=== PATIENT | male | born 1995 | race African-American/Black ===

== ENCOUNTER 2020-08-25 11:19 | Emergency (ER) | payer SELFPAY ==
[~2020-08-25] VITALS: Ht 177.8 cm; Wt 81.0 kg
[2020-08-25 12:11] LABS: BASOPHILS % 0.6 % (0.0-2.0); HEMOGLOBIN. 15.9 g/dL (14.0-18.0); LYMPHOCYTES % 37.2 % (20.0-50.0); MEAN CORPUSCULAR HEMOGLOBIN 29.2 pg (28.0-32.0); MEAN CORPUSCULAR VOLUME 88.1 fL (80.0-94.0); MEAN PLATELET VOLUME 9.1 fl (7.4-10.4); MONOCYTES % 7.1 % (2.0-8.0); NEUTROPHILS % 54.1 % (40.0-76.0); PLATELET 218 x1000/uL (130-400); RED BLOOD CELL COUNT 5.45 mill/uL (4.7-6.1); RED CELL DISTRIBUTION WIDTH 14.4 % (11.6-14.6)
[2020-08-25 12:16] LABS: CHLORIDE 103 mEq/L (98-107)
[2020-08-25 12:21] LABS: ETHANOL BLOOD < 10 mg/dL
[2020-08-25] MEDS ORDERED: LORAZEPAM 2MG/ML CPJ IM STA (13:01)
[2020-08-25] MEDS ORDERED: LEVETIRACETAM 1000MG PREMIX 100 ML IV ONE (13:15)
[2020-08-25 13:47] LABS: CLARITY URINE CLOUDY (CLEAR); COLOR URINE YELLOW (YELLOW); KETONES URINE NEGATIVE (NEGATIVE); LEUKOCYTE ESTERASE URINE NEGATIVE (NEGATIVE); NITRITE URINE NEGATIVE (NEGATIVE); OCCULT BLOOD URINE 1+ (NEGATIVE); PH URINE 5.5 (4.5-8.0); PROTEIN URINE 2+ (NEGATIVE); SPECIFIC GRAVITY URINE 1.016 (1.005-1.030); UROBILINOGEN URINE 0.2 E.U./dL (0.2-1.0)
[2020-08-25 14:25] LABS: *AMPHETAMINES SCREEN URINE NEGATIVE (NEGATIVE); *BARBITURATES SCREEN URINE NEGATIVE (NEGATIVE); *BENZODIAZEPINES SCREEN URINE NEGATIVE (NEGATIVE)
[2020-08-25 14:26] LABS: CANNABINOID URINE SCREEN PRESUMTIVE POSITIVE (NEGATIVE); METHADONE URINE SCREEN NEGATIVE (NEGATIVE); OPIATES URINE SCREEN NEGATIVE (NEGATIVE); PHENCYCLIDINE URINE SCREEN NEGATIVE (NEGATIVE)
[2020-08-25 14:29] LABS: *COCAINE SCREEN URINE NEGATIVE (NEGATIVE)
[2020-08-25] MEDS ORDERED: IPRATROPIUM/ALBUTEROL 0.5-3(2.5)MG/3ML NEB HHN PRN (15:15)
[2020-08-25] MEDS ORDERED: GUAIFENESIN 200MG/10ML SUGAR FREE UDC PO PRN (15:15)
[2020-08-25] MEDS ORDERED: MAGNESIUM/ALUMINUM HYDROXIDE/SIMETHICONE 30ML UDC PO PRN (15:15)
[2020-08-25] MEDS ORDERED: ZOLPIDEM TARTRATE 5MG TABLET PO PRN (15:15)
[2020-08-25] MEDS ORDERED: CLONIDINE 0.1MG TABLET PO PRN (15:15)
[2020-08-25] MEDS ORDERED: KETOROLAC 15MG/ML VIAL IV PRN (15:15)
[2020-08-25] MEDS ORDERED: DOCUSATE SODIUM 100MG CAPSULE PO PRN (15:15)
[2020-08-25] MEDS ORDERED: ONDANSETRON HCL 4MG/2ML INJ IV PRN (15:15)
[2020-08-25] MEDS ORDERED: NITROGLYCERIN 0.4MG TABLET SL SL PRN (15:15)
[2020-08-25] MEDS ORDERED: ACETAMINOPHEN 325MG TABLET PO PRN ×2 (15:15)
[2020-08-25] MEDS ORDERED: LORAZEPAM 2MG/ML CPJ IV PRN (15:15)
[2020-08-25 16:26] LABS: T4 FREE 1.06 ng/dL (0.76-1.46)
[2020-08-25 16:45] LABS: FOLIC ACID (FOLATE) SERUM 18.8 ng/mL (>5.38)
[2020-08-25] MEDS ORDERED: FAMOTIDINE 20MG TABLET PO SCH (21:00)
[2020-08-25] MEDS ORDERED: LEVETIRACETAM 500MG TABLET PO SCH (21:00)
[2020-08-25 22:01] VITALS: BP 120/68
== END 2020-08-25 22:19 | disposition left against medical advice (07) ==
LOC: EDBD 11:19 → ER 11:19 → EDBEDREQTM 13:27 → EDBEDREQ 13:27 → ENRESERV 21:11 → CANRESERV 21:11 → ER 22:19 → CANBEDREQ 22:48
DX: R56.9 Unspecified convulsions (principal)
CPT/HCPCS: 36415; 70450; 80053; 80305; 80320; 81003; 82607; 82746; 82962; 83036; 83540; 83550; 84439; 84443; 85025; 96365; 96372; 99291; J1953; J2060; Z7610; G0480